=== PATIENT | female | born 1950 | race African-American/Black ===

== ENCOUNTER 2023-08-05 05:57 | Observation (INO) | payer OTHER ==
[2023-07-30 10:21] LABS: Absolute Lymphocytes (CBC) 1.5 K/uL (0.7-4.9); Hematocrit 39.6 % (36.0-45.0); Lymphocytes % 41.1 % (15.3-44.8); MPV 8.9 fL (7.6-11.3); Platelets 214 thou/uL (152-406); RBC Red Blood Cell Count 4.56 M/uL (3.86-4.86)
[2023-07-30 10:28] LABS: Protime INR 1.14
[2023-07-30 10:34] LABS: Potassium 3.7 mEq/L (3.5-5.1)
--- NOTE | 2023-07-30 12:02 | RAD REPORT ---
EXAM DESCRIPTION: RAD - Chest Pa And Lat (2 Views) - 07/30/2023 10:21 am CLINICAL HISTORY: pre op left total knee. Hypertension COMPARISON: <Comparisons> TECHNIQUE: PA and lateral views of the chest were obtained. FINDINGS: The lungs are clear. Heart size is normal and central vasculature is within normal limits. No pleural effusion or pneumothorax seen. No acute bony finding noted. IMPRESSION: No acute cardiopulmonary process.
[2023-08-05] MEDS ORDERED: CEFAZOLIN SODIUM 2 GM/VIAL ONE (06:10)
[2023-08-05] MEDS ORDERED: GABAPENTIN 100 MG CAP ONE (06:18)
[2023-08-05] MEDS ORDERED: Oxycodone HCl/Acetaminophen 5/325 MG TAB ONE (06:19)
[2023-08-05] MEDS ORDERED: ACETAMINOPHEN 500 MG TAB ONE (06:19)
[2023-08-05] MEDS: Ringers Lactate 1,000 ML IV ONE ×2 (06:20→08:00)
[2023-08-05] MEDS ORDERED: CELECOXIB 100 MG CAPSULE ONE (06:20)
[2023-08-05] MEDS ORDERED: EPINEPHRINE 1 MG/ML VIAL ONE (07:05)
[2023-08-05] MEDS ORDERED: DEXMEDETOMIDINE HCL 200 MCG/2 ML VIAL ONE (07:05)
[2023-08-05] MEDS ORDERED: dexAMETHasone 10 MG/ML VIAL ONE (07:05)
[2023-08-05] MEDS ORDERED: LIDOCAINE 1% MPF 5 ML VIAL ONE (07:05)
[2023-08-05] MEDS ORDERED: FENTANYL CITR 100 MCG/2 ML ONE (07:05)
[2023-08-05] MEDS ORDERED: BUPIVACAINE 0.25% PF 30 ML VIAL ONE (07:06)
[2023-08-05] MEDS ORDERED: propofoL 200 MG/20 ML VIAL IV ONE (07:06)
[2023-08-05] MEDS ORDERED: MAGNESIUM SULFATE 1 gm IVPB 1 GM/100 ML BAG IV ONE (07:06)
[2023-08-05] MEDS ORDERED: TRANEXAMIC ACID 1,000 MG/10 ML VIAL IV ONE (07:29)
[2023-08-05] MEDS ORDERED: LIDOCAINE 2% MPF 5 ML VIAL ONE ×2 (07:55)
[2023-08-05] MEDS ORDERED: KETAMINE HCL IN 0.9 % NACL 50 MG/5 ML SYRINGE IV ONE (07:55)
[2023-08-05] MEDS ORDERED: NS 0.9% VIAL 20 ML ONE (08:37)
[2023-08-05] MEDS ORDERED: dexAMETHasone 4 MG/ML VIAL ONE (08:42)
[2023-08-05] MEDS ORDERED: ONDANSETRON 4 MG/2 ML VIAL ONE (08:42)
[2023-08-05] MEDS ORDERED: Ringers Lactate 1,000 ML IV ONE (10:53)
--- NOTE | 2023-08-05 11:15 | P.BOP ---
Preoperative diagnosis: left knee osteoarthritis Postoperative diagnosis: same Primary procedure: left total knee arthroplasty Potato Spotter: NONE,NONE Estimated blood loss: 40 cc Specimen: left knee bone remnants Findings: see dictation Anesthesia: General Complications: None Implants: Biomet Yair Persona 8 CR femur, F tibia w/ stem, 10 CR poly, 35 patella Fluids & blood products: per anesthesia record; TT: 92 mins @ 300 mmHg Transferred to: Recovery Room Condition: Good
[2023-08-05] MEDS ORDERED: ACETAMINOPHEN 325 MG TABLET PO PRN (11:16)
[2023-08-05] MEDS ORDERED: DOCUSATE NA 100 MG CAP PO PRN (11:16)
[2023-08-05] MEDS ORDERED: ONDANSETRON 4 MG/2 ML VIAL IV PRN (11:16)
[2023-08-05 12:13] VITALS: O2SAT 97
[2023-08-05 12:24] LABS: Hematocrit 37.4 % (36.0-45.0)
--- NOTE | 2023-08-05 12:26 | RAD REPORT ---
EXAM DESCRIPTION: RAD - Knee Left 2 View - 08/05/2023 11:44 am CLINICAL HISTORY: Post Op COMPARISON: No comparisons FINDINGS: Right total knee arthroplasty has been performed. Hardware is in expected alignment and po sitioning. Small amount of air is present in the joint space. Skin ciera are noted.
[2023-08-05 14:57] VITALS: BMI 33.3
[2023-08-05] MEDS ORDERED: AMLODIPINE 10 MG TAB PO SCH (17:00)
[2023-08-05] MEDS: CEFAZOLIN SODIUM 2 GM in NA CHLORIDE 0.9% 100 ML IVPB SCH (17:25)
[2023-08-05] MEDS ORDERED: ATORVASTATIN 10 MG TAB PO SCH (21:00)
[2023-08-05] MEDS ORDERED: HOME MED 1 EA UNK (Pravastatin [Pravachol*] 40 MG/TAB Tab) PO SCH (21:00)
--- NOTE | 2023-08-05 21:15 | P.OP ---
Preoperative diagnosis: left knee osteoarthritis Postoperative diagnosis: same Primary procedure: left total knee arthroplasty Anesthesia: general Estimated blood loss: 40 cc Specimen: left knee bone remnants Findings: see dictation Operative Technique: Indication For Procedure: Karolina is a 73 year-old female presenting to my clinic with signs, symptoms and x-ray findings consistent with severe left knee osteoarthritis. I discussed with the patient at length risks and benefits associated with operative and nonoperative treatment. She had failed conservative treatment measures and had significant difficulties with ADLs secondary to her pain. We discussed operative treatment and elected to proceed with left total knee arthroplasty. She expressed understanding and elected to proceed with operative treatment. Description Of Procedure: After informed consent was obtained, the patient was identified in the preoperative holding area. The left lower extremity was marked. The patient was then taken to the PACU where she underwent a left lower extremity adductor canal block performed by Anesthesia. She was then taken to the operating room, transferred to the operating table in supine fashion, and placed under general anesthesia. The left lower extremity was then prepped and draped in usual sterile fashion. A time-out was initiated. The correct patient and procedure were confirmed and identified. The patient did receive her preoperative prophylactic antibiotics. The left lower extremity was then exsanguinated and tourniquet was inflated to 300 mmHg. Approximately 15 cm longitudinal incision was made centered over the anterior aspect of the left knee. Dissection was then taken to the extensor mechanism and a medial parapatellar arthrotomy was performed. The patella was everted and dislocated laterally and the knee was flexed and the fat pad was excised. Medial and lateral meniscus and ACL were all excised exposing the distal femur. Excess hypertrophic synovium was also excised within the suprapatellar pouch. The patient had an MRI of her left knee preoperatively for surgical planning and creation of cutting blocks. The cutting block was then placed over the distal femur and pins were then placed. The distal femoral cutting block was then placed over the pins. An nuno wing was then used to ensure proper depth cut and the distal femur was then cut. The chamfer cutting guide was then placed over the distal end of the femur. Anterior, posterior cuts as well as anterior and posterior chamfer cuts were then made again confirming proper depth of the cut using an Nuno wing. Excess bone remnants were then sent to pathology for further evaluation. Next, attention was taken to the proximal tibia. A tibial jig and tibial cutting block was then placed on proximal aspect of the left tibia and locked into position. Pins were then placed and alignment guide was then used to confirm proper alignment of the cut and then coronal and sagittal planes. Once this was confirmed, the cutting jig was placed over the pins and the proximal tibia was cut. Sizing trays were then selected and size 10 mm spacer was used and there was good overall balance in flexion and extension. Next, the trial implants were then placed using the size 8 standard CR femur and a size F tibia and an 10 mm CR poly. There was overall good range of motion and good stability. The trial implants were then removed. The wound was then irrigated thoroughly with normal saline and the knee was then injected with 20 cc of 0.5% Marcaine both in the posterior capsule and medial and lateral gutters as well as quadriceps tendon and periosteum. The tibia was then punched. The femur was drilled. The cement was then prepared on the back table. Cement was then placed first on the tibial surface followed by size F tibia. A stem was placed for added stability and given her significant preoperative deformity and her obesity. Excess cement was removed with [place] elevators. Size 8 standard CR femur was then placed on the distal femur after cement was placed on the distal femur. Excess cement was then removed and a size 10 mm CR trial poly was then placed. The knee was held in extension as the cement hardened. Undersurface of the patella was prepared debriding osteophytes using rongeurs as well as osteophytes.. Cement was placed on the undersurface of the patella after it was cut and a size 35 patella was placed. Once the cement was hardened, the knee was ranged, there was good overall stability both in flexion, extension and as well as stability with varus and valgus stresses. Trial poly was then removed and a size 10 mm CR poly was then placed and locked into position. The knee was then ranged again. There was good overall range of motion both for flexion and extension with good stability. The wound was then irrigated again thoroughly with normal saline using pulse lavage. Tourniquet was let down. Hemostasis was achieved using Bovie electrocautery. Extensor mechanism was then approximated using a #1 Vicryl both in interrupted and running fashion. The fascia was then approximated using 0 Vicryl. Subcutaneous tissue was approximated with a 2-0 Vicryl. Skin was approximated using ciera. Sterile dressings were applied. The patient was awakened and transferred back in stable condition Complications: None Implants: Biomet Yair Persona 8 CR femur, F tibia w/ stem, 10 CR poly, 35 patella Fluids & blood products: per anesthesia record; TT: 92 mins @ 300 mmHg Transferred to: Recovery Room Condition: Good
[2023-08-06] MEDS: CEFAZOLIN SODIUM 2 GM in NA CHLORIDE 0.9% 100 ML IVPB SCH ×2 (00:41→08:50)
[2023-08-06 04:00] LABS: Hematocrit 33.3 % (36.0-45.0)
[2023-08-06] MEDS: ENOXAPARIN 30 MG/0.3 ML SQ SCH ×2 (05:17→09:00)
[2023-08-06] MEDS: TRAMADOL HCL 50 MG TAB PO PRN ×2 (05:19→11:22)
[2023-08-06 07:13] VITALS: BP 140/59; TEMP 98.1
[2023-08-06] MEDS ORDERED: atenoloL 50 MG TAB PO SCH (09:00)
[2023-08-06] MEDS ORDERED: HOME MED 1 EA UNK (Potassium Chloride [Potassium Chloride] 20 MEQ Tablet.Er) PO SCH (09:00)
[2023-08-06] MEDS ORDERED: POTASSIUM CL SA 10 MEQ TAB PO SCH (09:00)
[2023-08-06] MEDS ORDERED: CELECOXIB 100 MG CAPSULE PO SCH (09:00)
[2023-08-06] MEDS: HYDROCODONE/APAP 7.5/325 MG TAB PO PRN ×2 (09:16→13:20)
--- NOTE | 2023-08-06 13:02 | P.DS ---
Admission Date: 08/05/23 Discharge Date: 08/06/23 Disposition: DC HOME/HOME HEALTH CARE Discharge Condition: GOOD Reason for Admission: left TKA Consultations: none Procedures: left total knee arthroplasty 08/05/2023 Brief History of Present Illness: Karolina underwent left total knee arthroplasty onAugust 05, 2023 without complication. She was admitted to floor in stable condition. Hospital Course: Patient was admitted to floor postoperatively in stable condition. Physical therapy was consulted to aid with mobilization. Patient mobilize safely with physical therapy and was discharged in stable condition on August 06, 2023. She was given Lovenox for DVT prophylaxis while in the hospital and discharged with Xarelto which she will start tomorrow. Vital Signs/Physical Exam: Temp Pulse Resp BP Pulse Ox 98.1 F 63 17 140/59 L 99 08/06/23 07:09 08/06/23 07:09 08/06/23 07:09 08/06/23 07:09 08/06/23 07:09 Laboratory Data at Discharge: WBC 3.70 thou/uL (4.3-10.9) L 07/30/23 10:07 Hgb 11.2 g/dL (12.0-15.0) L D 08/06/23 02:46 Hct 33.3 % (36.0-45.0) L 08/06/23 02:46 Plt Count 214 thou/uL (152-406) 07/30/23 10:07 PT 12.5 SECONDS (9.5-12.5) 07/30/23 10:07 INR 1.14 07/30/23 10:07 APTT 36.5 SECONDS (24.3-36.9) 07/30/23 10:07 Sodium 141 mEq/L (136-145) 07/30/23 10:07 Potassium 3.7 mEq/L (3.5-5.1) 07/30/23 10:07 BUN 19 mg/dL (7-18) H 07/30/23 10:07 Creatinine 1.27 mg/dL (0.55-1.02) H 07/30/23 10:07 Glucose 99 mg/dL (74-106) 07/30/23 10:07 Home Medications: Amlodipine [Norvasc*] 10 mg PO DAILY AT SUPPER 07/30/23 Atenolol [Tenormin] 50 mg PO DAILY 07/30/23 Potassium Chloride 20 meq PO DAILY 07/30/23 Pravastatin [Pravachol*] 40 mg PO BEDTIME 07/30/23 Hydrocodone 7.5/APAP 325 [[place] 7.5/325 mg*] 1 tab PO Q4H PRN tab 08/06/23 Physician Discharge Instructions: Keep dressing clean, dry and intact. Begin Xarelto tomorrow, August 07, 2023 and take once daily. Use SHENG hose for 2 weeks to aid with swelling. Follow-up with Dr. Henderson in 2 weeks for staple removal. Diet: Regular Activity: Weight bearing as tolerated Followup: Pete Henderson MD [Primary Care Provider] - 1-2 Weeks
== END 2023-08-06 14:30 | disposition home health service (06) ==
LOC: OR 05:57 → 2ND 14:28
PROVIDERS: ADMIT Orthopaedic Surgery Sports Medicine; ATTEND Orthopaedic Surgery Sports Medicine
PROC: 0SRD0J9 Replacement of Left Knee Joint with Synthetic Substitute, Cemented, Open Approach (ICD-10-PCS; principal; 2023-08-05 08:00)
DX: M17.12 Unilateral primary osteoarthritis, left knee (principal)
CPT/HCPCS: 85025; 80048; 36415 ×3; 85610; 88305; 88311; 85730; 85018 ×2; 85014 ×2; 71046; 73560; 97110 ×2; 97116 ×2; 97139; 97161; 97530 ×3; 94010; 31720; 27447; J2704 ×2; J3475; A4216; J1100 ×2; J2001 ×3; J1650 ×2; J3010; J0171; J2405; J7120 ×2; G0379; G0378 ×2; C1776